=== PATIENT | male | born 1945 | race African-American/Black ===

== ENCOUNTER → 2017-02-19 | Outpatient (CLI) | payer OTHER | LOC: SBRMNEURO 09:08 | PROVIDERS: ATTEND Internal Medicine Pulmonary Disease | DX: G47.36 Sleep related hypoventilation in conditions classified elsewhere (principal); G47.33 Obstructive sleep apnea (adult) (pediatric); G47.61 Periodic limb movement disorder ==

== ENCOUNTER 2017-04-24 10:10 | Inpatient (IN) | payer OTHER ==
[~2017-04-24 10:10] MED LIST: ACETAMINOPHEN 325 MG TAB PO ONE; DEXAMETHASONE 4 MG/ML VIAL IVP ONE; FAMOTIDINE 20 MG TAB PO ONE; ROPIVACAINE 0.2% 80 MG, EPINEPHrine 0.2 MG, KETOROLAC TROMETHAMINE 30 MG in BAG 0 ML IU ONE; TRANEXAMIC ACID 1 MG in NS 100 ML IV ONE; ceFAZolin 2 GM/DEXTROSE 100 ML IV ONE
[2017-04-24] MEDS ORDERED: LIDOCAINE 1% 2 ML INJ ONE (11:35)
[2017-04-24] MEDS ORDERED: DEXAMETHASONE 4 MG/ML VIAL ONE (12:04)
[2017-04-24] MEDS ORDERED: ACETAMINOPHEN 325 MG TAB ONE (12:05)
[2017-04-24] MEDS ORDERED: FAMOTIDINE 20 MG TAB ONE (12:06)
--- NOTE | 2017-04-24 12:12 | PDHPUP ---
History & Physical Update H&P update statement: This history and physical update is based on an assessment of the patient which was completed after admission or registration (within 24 hours), but prior to the surgery/procedure. H&P update: H&P reviewed & patient examined, no change in patient's condition since H&P completed
[2017-04-24] MEDS ORDERED: TRANEXAMIC ACID 1,000 MG in NS 100 ML IV ONE (12:14)
[2017-04-24 12:21] LABS: % IMMATURE GRANULYOCYTES 0.5 % (0.0-1.1); ABSOLUTE IMMATURE GRANULOCYTES 0.04 10^3/uL (0.00-0.10); ADD DIFF? NO; ADD MORPH? NO; ADD SCAN? NO; ATYPICAL LYMPHOCYTE FLAG 10 (0-99); FRAGMENT RBC FLAG 0 (0-99); HEMATOCRIT 45.8 % (40.0-51.0); HEMOGLOBIN 15.5 g/dL (13.7-17.5); LEFT SHIFT FLG 0 (0-99); LIPEMIA HEMOLYSIS FLAG 90 (0-99); MEAN CELL HEMOGLOBIN 31.3 pg (27.9-34.1); MEAN CELL HEMOGLOBIN CONCENTR. 33.8 g/dL (32.4-36.7); MEAN CELL VOLUME 92.3 fL (81.5-99.8); PLATELET CLUMPS FLAG 0 (0-99); PLATELET COUNT 242 10^3/uL (150-400); RED BLOOD CELL COUNT 4.96 10^6/uL (4.40-6.38)
[2017-04-24] MEDS ORDERED: POVIDONE-IODINE 20 ML in SODIUM CL IRRIG SOLUTION 500 ML IRR ONE (12:21)
--- NOTE | 2017-04-24 12:34 | PDANEPAE ---
ANE History of Present Illness [age] yo M w OA here for R TKA ANE Past Medical History - Cardiovascular History Hx Hypertension: Yes Hx Arrhythmias: No Hx Chest Pain: No Hx Coronary Artery / Peripheral Vascular Disease: No Hx CHF / Valvular Disease: No Hx Palpitations: No - Pulmonary History Hx COPD: No Hx Asthma/Reactive Airway Disease: No Hx Recent Upper Respiratory Infection: No Hx Oxygen in Use at Home: No O2 in Use at Home (L/minute): 2L NC with CPAP - Neurologic History Hx Cerebrovascular Accident: No Hx Seizures: No Hx Dementia: No - Endocrine History Hx Diabetes: No - Renal History Hx Renal Disorders: Yes - Liver History Hx Hepatic Disorders: No - Neurological & Psychiatric Hx Hx Neurological and Psychiatric Disorders: No - Cancer History Hx Cancer: No - Congenital Disorder History Hx Congenital Disorders: No - GI History Hx Gastrointestinal Disorders: Yes - Chronic Pain History Chronic Pain: No ANE Review of Systems - Exercise capacity METS (RN): 4 METS - Systems Respiratory: Reports: other (ARLENE) Muscolosketal: Reports: joint pain ANE Patient History - Allergies Allergies/Adverse Reactions: No Known Allergies Allergy (Verified 04/23/17 16:34) - Home Medications Home medications: home medication list seen and reviewed Home Medications: Aspirin [Aspirin 81mg (*)] 81 mg PO DAILY 03/20/15 [Last Taken 04/18/17 20:00] Diltiazem HCl [Cartia XT 240mg] 240 mg PO DAILY 03/20/15 [Last Taken Unknown] Ascorbic Acid [Vitamin C 500 mg (*)] 500 mg PO BID 04/19/17 [Last Taken Unknown] Atorvastatin Calcium [Lipitor 20 mg (*)] 20 mg PO DAILY 04/19/17 [Last Taken Unknown] Herbals/Supplements -Info Only 1 ea PO DAILY 04/19/17 [Last Taken Unknown] Omeprazole [Prilosec 20 mg] 40 mg PO BID 04/19/17 [Last Taken Unknown] - NPO status NPO Since - Liquids (Date): 04/24/17 NPO Since - Liquids (Time): 09:25 NPO Since - Solids (Date): 04/24/17 NPO Since - Solids (Time): 19:00 - Anes Hx Anes Hx: no prior problems - Smoking Hx Smoking Status: Former smoker - Alcohol Use Alcohol Use: Occasionally - Family Anes Hx Family Anes Hx: none ANE Labs/Vital Signs - Labs Result Diagrams: 04/24/17 12:12 - Vital Signs Blood Pressure: 176/88 Heart Rate: 59 Respiratory Rate: 20 O2 Sat (%): 93 Height: 173.99 cm Weight: 96.162 kg ANE Physical Exam - Airway Neck exam: FROM Mallampati Score: Class 2 Mouth exam: normal dental/mouth exam (misssing molars) - Pulmonary Pulmonary: no respiratory distress, clear to auscultation - Cardiovascular Cardiovascular: regular rate and rhythym, no murmur, rub, or gallop ANE Anesthesia Plan Anesthesia Plan: spinal Regional Anesthesia: single shot NB, adductor canal FNB
[2017-04-24] MEDS ORDERED: PROPOFOL/EMULSION 500 MG/50 ML BOTTLE IV ONE ×3 (12:40→14:18)
[2017-04-24] MEDS ORDERED: LR 1,000 ML IV ONE (13:02)
[2017-04-24] MEDS ORDERED: LIDOCAINE 1% 2 ML INJ ID PRN (13:02)
[2017-04-24] MEDS ORDERED: fentaNYL 100 MCG/2 ML INJ IVP PRN (13:41)
[2017-04-24] MEDS ORDERED: ACETAMINOPHEN 500 MG TAB PO PRN (13:41)
[2017-04-24] MEDS ORDERED: ONDANSETRON 4 MG/2 ML VIAL IVP PRN ×2 (13:41→15:46)
[2017-04-24] MEDS ORDERED: NALOXONE HCL 0.4 MG/ML INJ IVP PRN (13:41)
[2017-04-24] MEDS ORDERED: OXYCODONE/APAP 5/325 TAB PO PRN (13:41)
[2017-04-24] MEDS ORDERED: HYDROmorphONE/DILAUDID 1 MG/ML SYR IVP PRN (13:41)
[2017-04-24] MEDS ORDERED: ROPIVACAINE HCL 150 MG/30 ML INJ ONE (14:19)
[2017-04-24] MEDS ORDERED: clonIDINE 1 MG/10 ML VIAL EP ONE (14:19)
[2017-04-24] MEDS ORDERED: PROPOFOL 200 MG/20 ML VIAL ONE (15:13)
[2017-04-24] MEDS ORDERED: PROMETHAZINE HCL 25 MG/ML INJ IVP PRN (15:46)
[2017-04-24] MEDS ORDERED: MAGNESIUM HYDROXIDE 30 ML UDCUP PO PRN (15:46)
[2017-04-24] MEDS ORDERED: oxyCODONE IR 5 MG TAB PO PRN (15:46)
[2017-04-24] MEDS ORDERED: BISACODYL 10 MG SUPP PR PRN (15:46)
[2017-04-24] MEDS ORDERED: POLYETHYLENE GLYCOL 3350 17 GM PKT PO PRN (15:46)
[2017-04-24] MEDS ORDERED: ONDANSETRON DISINTEGRATING 4 MG TAB PO PRN (15:46)
[2017-04-24] MEDS ORDERED: METOCLOPRAMIDE 10 MG/2 ML VIAL IVP PRN (15:46)
[2017-04-24] MEDS ORDERED: DIPHENOXYLATE/ATROPINE LOMOTIL 1 TAB PO PRN (15:46)
[2017-04-24] MEDS ORDERED: LACTULOSE 20 GM/30 ML UDCUP PO PRN (15:46)
[2017-04-24] MEDS ORDERED: CYCLOBENZAPRINE 10 MG TAB PO PRN (15:46)
[2017-04-24] MEDS ORDERED: TEMAZEPAM 15 MG CAP PO PRN (15:46)
[2017-04-24] MEDS ORDERED: diphenhydrAMINE 25 MG CAP PO PRN (15:46)
[2017-04-24] MEDS ORDERED: PROMETHAZINE HCL 25 MG SUPPR PR PRN (15:46)
[2017-04-24] MEDS ORDERED: PHARMACY PAIN CONSULT 1 EA MISC PRN (15:46)
--- NOTE | 2017-04-24 15:46 | POSTOPPROG ---
Post Op Note Date of Operation: 04/24/17 Surgeon: Woo Todd Sales Account Associate: génesis Anesthesia: Epidural Pre-op Diagnosis: R knee djd Post-op Diagnosis: same Indication: above Procedure: R TKA Inf/Abcess present in the surg proc area at time of surgery?: No EBL: 100-500
[2017-04-24] MEDS ORDERED: LR 1,000 ML IV SCH (16:00)
[2017-04-24] MEDS ORDERED: CEFAZOLIN 2 GM/DEXTROSE/100 ML BAG IV ONE (17:09)
[2017-04-24] MEDS: ACETAMINOPHEN 325 MG TAB PO SCH ×2 (17:52→23:46)
[2017-04-24] MEDS ORDERED: NON-FORMULARY NEW DRUG (Omeprazole [Prilosec 20 Mg] 40 MG) PO SCH (21:00)
--- NOTE | 2017-04-24 21:20 | POSTANESTH ---
Post Anesthetic Evaluation Cardiovascular Status: Normal, Stable, Similar to Pre-Op Cond Respiratory Status: Normal, Stable, Similar to Pre-op Cond. Level of Consciousness/Mental Status: Can Participate in Eval, Mildly Sleepy, Arousable Pain Control: Adequate, Prn Tx Ordered Nausea/Vomiting Control: Adequate, Prn Tx Ordered Complications Possibly Related to Anesthesia: None Noted
[2017-04-24] MEDS: SENNOSIDES/DOCUSATE SODIUM TAB PO SCH (21:37)
[2017-04-24] MEDS: FAMOTIDINE 20 MG TAB PO SCH (21:37)
[2017-04-24] MEDS: ASCORBIC ACID 500 MG TAB PO SCH (21:37)
[2017-04-24] MEDS: ceFAZolin 2 GM/DEXTROSE 100 ML IV SCH (21:37)
[2017-04-24] MEDS: PANTOPRAZOLE SODIUM 40 MG TAB PO SCH (21:37)
--- NOTE | 2017-04-25 02:57 | GOP ---
[f rep st] OPERATIVE REPORT DATE OF OPERATION: 04/24/2017 SURGEON: Woo Todd MD [employer] MANAGER: Eleazar Cantor SA. PREOPERATIVE DIAGNOSIS: Right knee degenerative joint disease. POSTOPERATIVE DIAGNOSIS: Right knee degenerative joint disease. PROCEDURE PERFORMED: Right total knee. FINDINGS: SPECIMENS: None. ESTIMATED BLOOD LOSS: 200 mL. INDICATIONS: This is a 71-year-old male with significant right knee DJD and a valgus deformity. He failed conservative management, and he was counseled on risks and benefits of total knee. We discussed risks of continued pain, weakness, stiffness, infection, need for revision, instability, and he elected to proceed. Informed consent was obtained. All questions asked and answered. He was marked preoperatively. DESCRIPTION OF PROCEDURE: He was taken to the operative suite. He was given spinal anesthesia by Anesthesia. He was put under anesthesia. He was positioned, sterilely prepped and draped in normal fashion. A time-out was performed, verifying the site, side, location. All were in agreement on the team. Esmarch was used and thigh tourniquet was inflated to 250 mmHg. Midline incision made over the knee and performed a medial parapatellar arthrotomy. I did expose the knee, removed the synovial tissue, and removed the osteophytes. We began by resurfacing the patella. I measured this and I resected 11 mm of patella with a resection guide. I flexed the knee and turned my attention to the femur, loly out the epicondylar axis and [place] line. I then entered the femoral canal and used the intramedullary guide to measure out the cut on the distal femur. I marked this, used 5 valgus, given his previous valgus deformity, and I cut this in a distal femoral cut. I used the AP femoral sizing guide. I then rotated this externally to match the epicondylar axis, given his deficient lateral condyle. I pinned this into place, took the cutting block to the femur, and then made all the femur cuts. I removed the excess bone. I then removed the meniscus. I then used the CR trial to yara the position for the box. I put a local in this and then used the box cutting guide, and I placed this in the distal femur, and then made the box cut with the saw and chisel. I turned my attention to the tibia. We placed traction on the tibia. I used the tibial alignment guide and took 9 mm off the medial side. I pinned this into place and made this cut, removed this bone, and removed extra soft tissue as well. I performed a small amount of lateral release for the patella tracking I placed the patella with the lug holes, trialed all of the components , and felt this balanced well in flexion and extension, with good tracking. These were removed. The knee was thoroughly irrigated. The cement was mixed. I cemented in all the components and then irrigated with Betadine dilute solution. I then allowed this to harden in extension. Poly in place. Did get the poly in place at this point, and then took the knee through further range of motion. This balanced well, had good range of motion, achieved full extension, and good patellar tracking. I thoroughly irrigated this, obtained good hemostasis, and closed this with #2 FiberWire with a couple of stitches in the tendon retinaculum with #1 Vicryl, 0 Vicryl, 2-0 Vicryl, 3-0 Quill. Dermabond was placed and a sterile dressing, and taken to PACU in stable condition. IMPLANTS: A [employer] Triathlon knee #6 posterior stabilized femur, a #6 tibial base plate, a #36 mm poly, and a 9 mm poly insert. COMPLICATIONS: None. DRAINS: None. CONDITION: Stable. /[id number]/MODL MTDD
[2017-04-25] MEDS: ceFAZolin 2 GM/DEXTROSE 100 ML IV SCH (04:52)
[2017-04-25] MEDS: ACETAMINOPHEN 325 MG TAB PO SCH ×2 (04:52→12:57)
[2017-04-25 05:09] LABS: HEMATOCRIT 40.1 % (40.0-51.0); HEMOGLOBIN 13.5 g/dL (13.7-17.5)
[2017-04-25 07:34] VITALS: RESP 12; TEMP 98.3
[2017-04-25] MEDS: PANTOPRAZOLE SODIUM 40 MG TAB PO SCH (08:24)
[2017-04-25] MEDS: FAMOTIDINE 20 MG TAB PO SCH (08:25)
[2017-04-25] MEDS: SENNOSIDES/DOCUSATE SODIUM TAB PO SCH (08:25)
[2017-04-25] MEDS: ASCORBIC ACID 500 MG TAB PO SCH (08:25)
[2017-04-25] MEDS ORDERED: ENOXAPARIN 40 MG/0.4 ML SYR SC SCH (09:00)
[2017-04-25] MEDS ORDERED: DILTIAZEM XR 240 MG CAP PO SCH (09:00)
[2017-04-25] MEDS ORDERED: ATORVASTATIN CALCIUM 20 MG TAB PO SCH (09:00)
[2017-04-25] MEDS ORDERED: ASPIRIN 81 MG CHEWABLE TAB PO SCH (09:00)
--- NOTE | 2017-04-25 11:38 | SOAPPROG ---
SOAP Progress Note Assessment/Plan: Assessment: R TKA Plan: Doing well lovenox scds PTOT home today 04/25/17 11:36 Subjective: minimal pain Objective: Vital Signs Temp Pulse Resp BP Pulse Ox 36.8 C 62 12 160/103 H 96 04/25/17 07:32 04/25/17 10:45 04/25/17 07:32 04/25/17 10:45 04/25/17 07:32 Laboratory Results 04/25/17 04:40 04/24/17 04/25/17 04/26/17 05:59 05:59 05:59 Intake Total 3305 Output Total 1525 Balance 1780 dressing cdi nvi distally ICD10 Worksheet Patient Problems: Problems Problem Status Onset Right knee DJD Acute - ICD10 Problem Qualifiers (1) Right knee DJD Qualifiers: Osteoarthritis type: primary Qualified Code(s): M17.11 - Unilateral primary osteoarthritis, right knee
[2017-04-25 11:40] VITALS: BP 154/89; PULSE 71; O2SAT 90
--- NOTE | 2017-04-25 11:59 | GDS ---
[f rep st] DISCHARGE SUMMARY DIAGNOSIS: Right knee degenerative joint disease. POSTOP DIAGNOSIS: Right knee total arthroplasty. He was admitted after right total knee arthroplasty. Did well with physical therapy. His pain was controlled. He met criteria for discharge home. CONDITION ON DISCHARGE: Stable. DISPOSITION: Home. CONSULTING PHYSICIANS: Anesthesia and Pain Management. PROCEDURES: Right total knee arthroplasty. He was sent home on a regular diet. Weightbearing as tolerated. Start on previous home medications . He did get a prescription for oxycodone and Ultram for pain as well as Zofran for nausea and Love nox 40 once a day for 10 days for DVT prophylaxis. He will take a full-strength aspirin a day after this for 4 weeks. He will call or come back to the hospital if any chest pain, shortness of breath , fever, concerns for infection, bleeding, drainage or other concerns. He has previously scheduled postoperative appointment already scheduled for 05/10/2017. /[id number]/MODL
== END 2017-04-25 13:31 | disposition home or self-care (01) | DRG 470 ==
LOC: F3N 10:56
PROVIDERS: ADMIT Orthopaedic Surgery; ATTEND Orthopaedic Surgery
PROC: 0SRC0J9 Replacement of Right Knee Joint with Synthetic Substitute, Cemented, Open Approach (ICD-10-PCS; principal; 2017-04-24 12:30)
DX: M17.11 Unilateral primary osteoarthritis, right knee (principal)
CPT/HCPCS: 97161-GP; 97165-GO; C1713; G8978-GP-CI; G8979-GP-CI; G8980-GP-CI; G8987-GO-CI; G8988-GO-CI; G8989-GO-CI; J0171; J0690; J0735; J1100; J1650; J1885; J2704; J2795